=== PATIENT | female | born 1970 | race Caucasian/White ===

== ENCOUNTER 2017-05-07 11:19 | Inpatient (IN) | payer MEDICAID ==
[~2017-05-07] VITALS: Ht 167.6 cm; Wt 74.8 kg
[2017-05-07] MEDS ORDERED: BUPR75 PO (11:30)
[2017-05-07 11:33] LABS: GLUCOSE,POINT OF CARE 108 MG/DL (70-110)
[2017-05-07 12:23] LABS: ANION GAP 5 mmol/L (8-16); BASOPHILS % (AUTO) 0.2 % (0.0-2.0); CALCIUM, TOTAL 8.9 mg/dL (8.8-10.5); CARBON DIOXIDE 29 mmol/L (22-29); CHLORIDE 105 mmol/L (98-107); CREATININE 0.66 mg/dL (0.60-1.30); EOSINOPHILS % (AUTO) 0.5 % (1.0-6.0); GLOMERULAR FILTR. RATE CALC > 60 mL/min (>60); GLUCOSE,RANDOM 96 mg/dL (70-110); HEMATOCRIT 35.6 % (36-46); HEMOGLOBIN 11.7 g/dL (12.0-16.0); LYMPHOCYTES # (AUTO) 1.5 K/uL (1.0-4.8); LYMPHOCYTES % (AUTO) 13.1 % (22.0-44.0); MEAN CORPUSCULAR HEMOGLOBIN 27.5 pg (26.0-34.0); MEAN CORPUSCULAR HGB CONC 32.9 G/dL (31.0-37.0); MEAN CORPUSCULAR VOLUME 84 fL (80-100); MONOCYTES # (AUTO) 0.3 K/uL (0.1-1.0); MONOCYTES % (AUTO) 2.7 % (2.0-9.0); NEUTROPHILS # (AUTO) 9.3 K/uL (1.8-7.7); NEUTROPHILS % (AUTO) 83.5 % (40.0-70.0); PLATELET COUNT (AUTO) 171 K/uL (150-450); POTASSIUM 3.6 mmol/L (3.5-5.1); RED BLOOD CELL COUNT(AUTO) 4.25 MIL/uL (4.00-5.20); RED CELL DISTRIBUTION WIDTH 15.8 % (11.5-14.5); SODIUM SERUM 139 mmol/L (136-145); UREA NITROGEN, BLOOD 8 mg/dL (7-18)
[2017-05-07 12:29] LABS: ALANINE AMINOTRANSFERASE 13 U/L (12-78); ALBUMIN 3.6 g/dL (3.4-5.0); ALKALINE PHOSPHATASE 93 U/L (46-116); ASPARTATE AMINOTRANSFERASE 8 U/L (15-37); BILIRUBIN,TOTAL 0.4 mg/dL (0.1-1.0); TOTAL PROTEIN, SERUM 7.1 g/dL (6.4-8.2)
[2017-05-07] MEDS ORDERED: ACETAMINOPHEN 325 MG TABLET PO PRN (13:00)
[2017-05-07] MEDS ORDERED: ONDANSETRON HCL 4 MG/2 ML VIAL IVP PRN (13:00)
[2017-05-07] MEDS ORDERED: VANCOMYCIN HCL 1 GM/D5% WATER 200 ML IV ONE (13:00)
[2017-05-07] MEDS ORDERED: DEXTROSE 50%-WATER 25 GM/50 ML SYRINGE IVP PRN (16:00)
[2017-05-07] MEDS ORDERED: MORPHINE SULFATE 2 MG/ML SYRINGE IVP PRN (16:00)
[2017-05-07 16:12] VITALS: BP 87/50
[2017-05-07] MEDS: BuPROPion HCL 75 MG TABLET PO SCH ×2 (16:43→20:28)
[2017-05-07] MEDS: LEVOFLOXACIN 500 MG TABLET PO SCH (16:43)
[2017-05-07] MEDS: INSULIN ASPART 100 UNITS/ML SQ PRN (16:46)
[2017-05-07 17:18] LABS: GLUCOMETER DEV NAME(LOC) 6N 2D; GLUCOSE,POINT OF CARE 102 MG/DL (70-110)
[2017-05-07] MEDS ORDERED: PNEUMOCOCCAL VACCINE POLYVALENT 0.5 ML VIAL [PPSV23] IM ONE (17:45)
[2017-05-07 19:27] VITALS: BP 102/63
[2017-05-07] MEDS: VANCOMYCIN HCL 1 GM/D5% WATER 200 ML IV SCH (23:23)
[2017-05-07 23:26] VITALS: BP 95/56
[2017-05-07 23:37] LABS: GLUCOMETER DEV NAME(LOC) 6N 1E; GLUCOSE,POINT OF CARE 117 MG/DL (70-110)
[2017-05-08 04:32] VITALS: BP 107/66
[2017-05-08 06:37] LABS: GLUCOMETER DEV NAME(LOC) 6N 1E; GLUCOSE,POINT OF CARE 101 MG/DL (70-110)
[2017-05-08 07:25] VITALS: BP 91/54
[2017-05-08 07:57] LABS: ANION GAP 9 mmol/L (8-16); CALCIUM, TOTAL 8.4 mg/dL (8.8-10.5); CARBON DIOXIDE 25 mmol/L (22-29); CHLORIDE 107 mmol/L (98-107); CREATININE 0.61 mg/dL (0.60-1.30); GLOMERULAR FILTR. RATE CALC > 60 mL/min (>60); GLUCOSE,RANDOM 91 mg/dL (70-110); POTASSIUM 3.8 mmol/L (3.5-5.1); SODIUM SERUM 141 mmol/L (136-145); UREA NITROGEN, BLOOD 9 mg/dL (7-18)
[2017-05-08] MEDS ORDERED: GADOBUTROL 1 MMOL/ML 10 ML VIAL IVP ONE (08:14)
[2017-05-08] MEDS: BuPROPion HCL 75 MG TABLET PO SCH ×3 (09:27→21:29)
[2017-05-08] MEDS: LEVOFLOXACIN 500 MG TABLET PO SCH (09:27)
[2017-05-08] MEDS: VANCOMYCIN HCL 1 GM/D5% WATER 200 ML IV SCH (10:31)
[2017-05-08 11:22] VITALS: BP 93/53
[2017-05-08] MEDS ORDERED: SODIUM CHLORIDE 0.9% 500 ML IV ONE (11:28)
[2017-05-08] MEDS: INSULIN ASPART 100 UNITS/ML SQ PRN ×2 (11:51→17:44)
[2017-05-08 15:35] VITALS: BP 100/46
[2017-05-08] MEDS: VANCOMYCIN HCL 1.25 GM in DEXTROSE 5%-WATER 250 ML IV SCH ×2 (17:21→23:18)
[2017-05-08 19:07] LABS: GLUCOMETER DEV NAME(LOC) 6N 2D; GLUCOSE,POINT OF CARE 122 MG/DL (70-110)
[2017-05-08 19:07] LABS: GLUCOMETER DEV NAME(LOC) 6N 1E; GLUCOSE,POINT OF CARE 122 MG/DL (70-110)
[2017-05-08 19:23] VITALS: BP 98/46
[2017-05-08] MEDS ORDERED: ACETAMINOPHEN 325 MG TABLET PO PRN (23:00)
[2017-05-08 23:36] VITALS: BP 86/59
[2017-05-09] MEDS: VANCOMYCIN HCL 1.25 GM in DEXTROSE 5%-WATER 250 ML IV SCH ×2 (01:55→08:01)
[2017-05-09 04:51] VITALS: BP 100/51
[2017-05-09 05:43] LABS: GLUCOMETER DEV NAME(LOC) 6N 1E; GLUCOSE,POINT OF CARE 111 MG/DL (70-110)
[2017-05-09 08:00] VITALS: BP 95/65
[2017-05-09] MEDS: LEVOFLOXACIN 500 MG TABLET PO SCH (08:01)
[2017-05-09 08:02] LABS: GLUCOMETER DEV NAME(LOC) 6N 2D; GLUCOSE,POINT OF CARE 114 MG/DL (70-110)
[2017-05-09 08:51] LABS: ANION GAP 6 mmol/L (8-16); CALCIUM, TOTAL 8.3 mg/dL (8.8-10.5); CARBON DIOXIDE 27 mmol/L (22-29); CHLORIDE 107 mmol/L (98-107); CREATININE 0.69 mg/dL (0.60-1.30); GLOMERULAR FILTR. RATE CALC > 60 mL/min (>60); GLUCOSE,RANDOM 92 mg/dL (70-110); POTASSIUM 3.6 mmol/L (3.5-5.1); SODIUM SERUM 140 mmol/L (136-145); UREA NITROGEN, BLOOD 5 mg/dL (7-18); VANCOMYCIN,RANDOM 33.7 mcg/mL (25.0-50.0)
[2017-05-09] MEDS: BuPROPion HCL 75 MG TABLET PO SCH (10:17)
[2017-05-09 11:47] VITALS: BP 96/49
[2017-05-09] MEDS ORDERED: LEVO500 PO (12:29)
[2017-05-09] MEDS ORDERED: VANCOMYCIN HCL 1 GM/D5% WATER 200 ML IV SCH (16:00)
[2017-05-09 18:03] LABS: GLUCOMETER DEV NAME(LOC) 6N 2D; GLUCOSE,POINT OF CARE 159 MG/DL (70-110)
== END 2017-05-09 13:30 | disposition home or self-care (01) | DRG 383 ==
LOC: EMS 11:21 → 6N 13:21
PROVIDERS: ADMIT Family Medicine; ATTEND Family Medicine
DX: L03.115 Cellulitis of right lower limb (principal); L97.519 Non-pressure chronic ulcer of other part of right foot with unspecified severity; E89.0 Postprocedural hypothyroidism; R73.03 Prediabetes; M20.11 Hallux valgus (acquired), right foot; F17.210 Nicotine dependence, cigarettes, uncomplicated; Z88.0 Allergy status to penicillin; Z98.891 History of uterine scar from previous surgery; Z83.3 Family history of diabetes mellitus
CPT/HCPCS: 73720; 82962; 93925; 96374; 99285; A9585; J2270; J3370; J7040; J7060